=== PATIENT | male | born 1995 | race African-American/Black ===

== ENCOUNTER 2017-07-09 02:58 | Emergency (ER) | payer MEDICAID, MEDICARE, OTHER ==
--- NOTE | 2017-07-09 03:19 | ED Physician Documentation ---
PD HPI MHE - Stated complaint Stated Complaint: MHE - Chief complaint Chief Complaint: MHE - History obtained from History obtained from: Patient, Family (mother brought patient to ED, but left before I came to evaluate patient; she gave HPI to nurses, who then provided me with the information the mother had given before she left) - History of Present Illness Primary symptom: Other (unusual behavior, headache) Timing - onset: Unknown Pain level now: 4 Recently seen: Not recently seen (several previous [facility] ED visits but not since 2014) - Additional information Additional information: patient states he is here because of right-sided headache that started earlier tonight, no exacerbating or ameliorating factors. As noted above, the mother is not in the ED at the time of my evaluation, but nurses tell me that the mother brought patient in because she is concerned with repetitive and odd behaviors patient has been exhibiting, such as opening and closing doors, hiding things around the house. Patient denies this when I ask him. He strongly denies SI/HI/ AH/VH Review of Systems Constitutional: denies: Fever Eyes: denies: Loss of vision, Decreased vision, Photophobia Cardiac: reports: Reviewed and negative Respiratory: reports: Reviewed and negative GI: reports: Reviewed and negative Neurologic: reports: Headache. denies: Generalized weakness, Focal weakness, Numbness, Confused Psychiatric: denies: Depressed, Suicidal, Homicidal, Hallucinations, Delusions, Anxiety PD PAST MEDICAL HISTORY - Past Medical History Cardiovascular: None Respiratory: None Neuro: None Endocrine/Autoimmune: None GI: None HEENT: None Psych: Other - Past Surgical History Past Surgical History: No - Present Medications Home Medications: Ambulatory Orders Medication Instructions Recorded Confirmed No Known Home Medications [No 07/09/17 07/09/17 Known Home Medications] - Allergies Allergies/Adverse Reactions: Allergies Allergy/AdvReac Type Severity Reaction Status Date / Time No Known Drug Allergies Allergy Verified 07/09/17 03:10 - Social History Does the pt smoke?: No Smoking Status: Never smoker Does the pt drink ETOH?: No Does the pt have substance abuse?: No - Immunizations Immunizations are current?: Yes PD ED PE NORMAL - Vitals Vital signs reviewed: Yes - General General: Alert and oriented X 3, No acute distress, Well developed/nourished, Other (awake, alert; his affect is guarded, but he answers questions quickly and appropriately) - HEENT HEENT: PERRL, EOMI, Moist mucous membranes - Neck Neck: Supple, no meningeal sign - Cardiac Cardiac: RRR, No murmur - Respiratory Respiratory: No respiratory distress, Clear bilaterally - Derm Derm: Normal color, Warm and dry - Neuro Neuro: Alert and oriented X 3, 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, No motor deficit, No sensory deficit, Normal speech Eye Opening: Spontaneous Motor: Obeys Commands Verbal: Oriented GCS Score: 15 PD ED PE EXPANDED - Psych Psych: Other (flat affect) Results - Vitals Vitals: Vital Signs - 24 hr 07/09/17 07/09/17 03:00 07:44 Temperature 36.2 C L 36.7 C Heart Rate 122 H 90 Respiratory 18 17 Rate Blood Pressure 129/87 H 130/86 H O2 Saturation 99 100 Oxygen O2 Source Room air - Labs Labs: Laboratory Tests 07/09/17 07/09/17 07/09/17 03:13 03:28 03:28 WBC 6.2 RBC 5.54 Hgb 15.8 Hct 47.4 MCV 85.6 MCH 28.6 MCHC 33.3 RDW 13.2 Plt Count 256 MPV 8.4 Neut # 3.7 Lymph # 1.6 [place] # 0.6 Eos # 0.2 Baso # 0.1 Absolute Nucleated RBC 0.00 Nucleated RBC % 0.1 Sodium 138 Potassium 3.2 L Chloride 106 Carbon Dioxide 24 Anion Gap 8.0 BUN 28 H Creatinine 1.2 Estimated GFR (MDRD) 90 Glucose 100 Calcium 9.2 Urine Opiates Screen NEGATIVE Ur Oxycodone Screen NEGATIVE Urine Methadone Screen NEGATIVE Ur Propoxyphene Screen NEGATIVE Ur Barbiturates Screen NEGATIVE Ur Tricyclics Screen NEGATIVE Ur Phencyclidine Scrn NEGATIVE Ur Amphetamine Screen NEGATIVE U Methamphetamines Scrn NEGATIVE U Benzodiazepines Scrn NEGATIVE Urine Cocaine Screen NEGATIVE U Cannabinoids Screen NEGATIVE Ethyl Alcohol < 5.0 PD MEDICAL DECISION MAKING - ED course Complexity details: reviewed old records, reviewed results, re-evaluated patient , considered differential, d/w patient ED course: Patient was calm and cooperative during ED stay. I explained to him that, based on previous medical records and mother's concerns regarding his behavior patterns at home, I recommended SW consult and that this would require him to stay in the emergency department for several hours. He was agreeable to this, although at approximately 5 AM, he asked the nurse if he could leave. Before I went to talk to him about this, he called his mother. I then asked him about the discussion, and he says she would pick him up later in the morning. I again asked that he stay in the ED until SW could speak with him, and he again was agreeable, calm, and cooperative. SW evaluated patient in the morning, hospitalization or further emergent treatment/observation not indicated based on lack of evidence that patient is imminent danger to himself or others. Departure - Departure Disposition: 01 Home, Self Care Clinical Impression: Headache Qualifiers: Headache type: unspecified Headache chronicity pattern: acute headache Intractability: not intractable Qualified Code(s): R51 - Headache Condition: Good Instructions: ED Cephalgia Unspecified Follow-Up: Yolanda Wetzel ARNP [Primary Care Provider] - Discharge Date/Time: 07/09/17 08:08
[2017-07-09] MEDS ORDERED: ACETAMINOPHEN 325 MG TABLET PO STA (03:21)
[2017-07-09] MEDS ORDERED: ACETAMINOPHEN 325 MG TABLET PO ONE (03:27)
[2017-07-09] MEDS ORDERED: ACETAMINOPHEN 160 MG/5 ML SUSP UDC PO STA (03:29)
[2017-07-09] MEDS ORDERED: ACETAMINOPHEN 160 MG/5 ML SUSP UDC ONE (03:32)
[2017-07-09 03:35] LABS: BASOPHILS # (AUTO) 0.1 10^3/uL (0.0-0.1); BASOPHILS % (AUTO) 1.4 %; EOSINOPHILS # (AUTO) 0.2 10^3/uL (0.0-0.7); EOSINOPHILS % (AUTO) 3.6 %; HCT - HEMATOCRIT 47.4 % (42.0-52.0); HGB - HEMOGLOBIN 15.8 g/dL (14.0-18.0); LYMPHOCYTES # (AUTO) 1.6 10^3/uL (1.5-3.5); LYMPHOCYTES % (AUTO) 26.2 %; MEAN CORPUSCULAR HEMOGLOBIN 28.6 pg (27.0-31.0); MEAN CORPUSCULAR HGB CONC 33.3 g/dL (32.0-36.0); MEAN CORPUSCULAR VOLUME 85.6 fL (80.0-94.0); MEAN PLATELET VOLUME 8.4 fL (7.4-11.4); MONOCYTES # (AUTO) 0.6 10^3/uL (0.0-1.0); MONOCYTES % (AUTO) 8.9 %; NEUTROPHILS # (AUTO) 3.7 10^3/uL (1.5-6.6); NEUTROPHILS % (AUTO) 59.9 %; NUCLEATED RED BLOOD CELLS AUTO 0.1 /100WBC; RED BLOOD COUNT 5.54 10^6/uL (4.70-6.10); RED CELL DISTRIBUTION WIDTH 13.2 % (12.0-15.0); UNCORRECTED WHITE BLOOD COUNT 6.2 x10^3/uL; WHITE BLOOD COUNT 6.2 x10^3/uL (4.8-10.8)
[2017-07-09 03:51] LABS: BUN - BLOOD UREA NITROGEN 28 mg/dL (6-20); CALCIUM 9.2 mg/dL (8.5-10.3); CARBON DIOXIDE - CO2 24 mmol/L (21-32); CHLORIDE 106 mmol/L (101-111); CREATININE 1.2 mg/dL (0.6-1.2); GFR - MDRD 90 (>89); GLUCOSE 100 mg/dL (70-100); POTASSIUM 3.2 mmol/L (3.5-5.0); SODIUM 138 mmol/L (135-145)
[2017-07-09 07:45] VITALS: BP 130/86
== END 2017-07-09 08:08 | disposition home or self-care (01) ==
LOC: ED 02:58
DX: R51 Headache (principal)
CPT/HCPCS: 36415; 80048; 80306; 85025; 99283; A9270; G0480; 80320

== ENCOUNTER 2017-07-10 05:35 | Emergency (ER) | payer MEDICARE, MEDICAID ==
--- NOTE | 2017-07-10 05:52 | ED Physician Documentation ---
PD HPI MHE - Stated complaint Stated Complaint: HEARING VOICES - History obtained from History obtained from: Patient, Family (mother of patient) - History of Present Illness Primary symptom: Other (auditory hallucinations) Timing - onset: Chronic Pain level now: 0 Similar symptoms before: Other (schizophrenia) Recently seen: Emergency Dept (T+R yesterday from this ED) - Additional information Additional information: Discharged yesterday from this ED. He is brought back to ED by his mother; she tells me that after he was discharged, he went missing and thus she called police and filed a missing person report. He was found and brought back home, and she now brings him back to ED for reevaluation. She reports to me that patient is acting odd, and that he is making suicidal threats. When I told her that I was the treating physician yesterday, she immediately became very upset and angry with me, making obtaining HPI from her difficult. She repeatedly says patient needs Invega as well as admission to an inpatient psychiatric facility. I explained to her that I would see if we have this medication, but that I recommend holding off on medication until SW evaluation so as to avoid sedation that might interfere with the SW evaluation. I strongly recommended to her that she stay in the ED until SW arrives, which would be in approximately 2 hours. She said she was going to go home but that she would return so that she can be present when the SW evaluated him. When I evaluated patient yesterday, he only c/o headache. However, at this time he tells me he is hearing voices. He also says "there are some issues going on at home, too" (per patient) although he does not elaborate on this. Review of Systems Cardiac: reports: Reviewed and negative Respiratory: reports: Reviewed and negative GI: reports: Reviewed and negative PD PAST MEDICAL HISTORY - Past Medical History Cardiovascular: None Respiratory: None Neuro: None Endocrine/Autoimmune: None GI: None HEENT: None Psych: Other - Past Surgical History Past Surgical History: No - Present Medications Home Medications: Ambulatory Orders Medication Instructions Recorded Confirmed No Known Home Medications [No 07/09/17 07/10/17 Known Home Medications] - Allergies Allergies/Adverse Reactions: Allergies Allergy/AdvReac Type Severity Reaction Status Date / Time No Known Drug Allergies Allergy Verified 07/10/17 05:44 - Social History Does the pt smoke?: No Smoking Status: Never smoker Does the pt drink ETOH?: No Does the pt have substance abuse?: No - Immunizations Immunizations are current?: Yes - POLST Patient has POLST: No PD ED PE NORMAL - Vitals Vital signs reviewed: Yes - General General: Alert and oriented X 3, No acute distress, Well developed/nourished, Other (awake and alert, calm and cooperative. 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 Mother did return to ED at 8 AM and was present to participate in the manager social services's evaluation. I signed this case out to Dr. Garcia at the end of my shift, as evaluation is ongoing at that time.
[2017-07-10] MEDS ORDERED: OLANZapine ODT 5 MG TABLET TL STA (09:36)
[2017-07-10] MEDS ORDERED: OLANZapine 10 MG VIAL IM STA (09:44)
[2017-07-10] MEDS ORDERED: OLANZapine 10 MG VIAL IM ONE (09:53)
[2017-07-10] MEDS ORDERED: WATER FOR INJECTION,STERILE 10 ML ONE (09:56)
[2017-07-10] MEDS ORDERED: LORazepam 0.5 MG TABLET PO STA (10:14)
[2017-07-10] MEDS ORDERED: LORazepam 0.5 MG TABLET ONE (10:36)
[2017-07-10 10:40] LABS: HCT - HEMATOCRIT 45.2 % (42.0-52.0); HGB - HEMOGLOBIN 15.2 g/dL (14.0-18.0); MEAN CORPUSCULAR HEMOGLOBIN 28.7 pg (27.0-31.0); MEAN CORPUSCULAR HGB CONC 33.7 g/dL (32.0-36.0); MEAN CORPUSCULAR VOLUME 85.3 fL (80.0-94.0); MEAN PLATELET VOLUME 8.3 fL (7.4-11.4); RED BLOOD COUNT 5.3 10^6/uL (4.70-6.10); RED CELL DISTRIBUTION WIDTH 13.3 % (12.0-15.0); WHITE BLOOD COUNT 9.3 x10^3/uL (4.8-10.8)
[2017-07-10 10:52] LABS: ALBUMIN/GLOBULIN RATIO 1.4 (1.0-2.2); BILIRUBIN,TOTAL 1.6 mg/dL (0.2-1.0); BUN - BLOOD UREA NITROGEN 22 mg/dL (6-20); CALCIUM 9.6 mg/dL (8.5-10.3); CARBON DIOXIDE - CO2 26 mmol/L (21-32); CHLORIDE 101 mmol/L (101-111); CREATININE 1.1 mg/dL (0.6-1.2); GFR - MDRD 100 (>89); GLUCOSE 114 mg/dL (70-100); LIPASE 36 U/L (22-51); POTASSIUM 3.2 mmol/L (3.5-5.0); SALICYLATE < 6.0 mg/dL; SODIUM 138 mmol/L (135-145); TOTAL PROTEIN 7.8 g/dL (6.7-8.2)
[2017-07-10 11:08] LABS: ACETAMINOPHEN < 10 ug/mL (10-30)
[2017-07-10 11:14] LABS: BILIRUBIN,URINE NEGATIVE (NEGATIVE)
[2017-07-10 11:15] LABS: UA CHARGE (STRIP ONLY) YES; UR CULTURE IF IND NOT INDICATED
[2017-07-10] MEDS ORDERED: POTASSIUM BICARB 25 MEQ TABLET PO STA (13:21)
[2017-07-10] MEDS ORDERED: POTASSIUM BICARB 25 MEQ TABLET PO ONE (14:27)
--- NOTE | 2017-07-10 16:41 | ED Physician Documentation ---
PD HPI MHE - Stated complaint Stated Complaint: HEARING VOICES - Chief complaint Chief Complaint: MHE - History obtained from History obtained from: Patient - History of Present Illness Primary symptom: Off meds, Medical clearance, Other (hearing voices again) Timing - onset: How many months ago (1) Similar symptoms before: Diagnosis (schizophrenia) Recently seen: Emergency Dept - Additional information Additional information: 22-year-old male with a prior history of schizophrenia has been off of his medications for about 1 year and about 1 month ago began to hear voices again. He denies any command hallucinations he denies any persecutory delusions states that he is simply having random voices. He would like to restart on some medication. He denies any depression denies any suicidal or homicidal ideation. He is accompanied here today by his mother who insists that he needs to be admitted to a psychiatric facility for medications. The patient himself is cooperative and agrees with this plan. Review of Systems Constitutional: denies: Fever, Chills, Myalgias Eyes: denies: Decreased vision Ears: denies: Loss of hearing, Ear pain Nose: denies: Congestion Throat: denies: Sore throat Cardiac: denies: Chest pain / pressure Respiratory: denies: Dyspnea, Cough GI: denies: Abdominal Pain, Nausea, Vomiting, Constipation, Diarrhea : denies: Dysuria, Frequency Skin: denies: Rash Musculoskeletal: denies: Neck pain, Back pain, Extremity pain Neurologic: denies: Generalized weakness, Focal weakness, Numbness Psychiatric: reports: Hallucinations. denies: Depressed, Suicidal, Homicidal, Delusions, Insomnia PD PAST MEDICAL HISTORY - Past Medical History Past Medical History: No Cardiovascular: None Respiratory: None Neuro: None Endocrine/Autoimmune: None GI: None HEENT: None Psych: Other - Past Surgical History Past Surgical History: No - Present Medications Home Medications: Ambulatory Orders Medication Instructions Recorded Confirmed No Known Home Medications [No 07/09/17 07/10/17 Known Home Medications] - Allergies Allergies/Adverse Reactions: Allergies Allergy/AdvReac Type Severity Reaction Status Date / Time No Known Drug Allergies Allergy Verified 07/10/17 05:44 - Social History Does the pt smoke?: No Smoking Status: Never smoker Does the pt drink ETOH?: No Does the pt have substance abuse?: No - Immunizations Immunizations are current?: Yes - POLST Patient has POLST: No PD ED PE NORMAL - Vitals Vital signs reviewed: Yes (hypertensive) - General General: Alert and oriented X 3, No acute distress, Well developed/nourished - HEENT HEENT: Atraumatic, PERRL - Respiratory Respiratory: No respiratory distress - Derm Derm: Normal color, Warm and dry, No rash - Extremities Extremities: No deformity, No edema - Neuro Neuro: Alert and oriented X 3, behavioral health counselor 2-12 intact, No motor deficit, No sensory deficit, Normal speech Eye Opening: Spontaneous Motor: Obeys Commands Verbal: Oriented GCS Score: 15 - Psych Psych: Normal mood, Normal affect Results - Vitals Vitals: Vital Signs - 24 hr 07/10/17 07/10/17 07/11/17 19:25 21:45 05:21 Temperature 36.4 C L 36.5 C Heart Rate 102 H 107 H 98 Respiratory 12 18 18 Rate Blood Pressure 105/75 128/94 H 129/78 O2 Saturation 97 100 99 07/11/17 12:37 Temperature Heart Rate 78 Respiratory 16 Rate Blood Pressure 128/81 H O2 Saturation 97 Oxygen O2 Source Room air - Labs Labs: Laboratory Tests 07/10/17 07/10/17 07/10/17 10:31 10:31 11:08 WBC 9.3 RBC 5.30 Hgb 15.2 Hct 45.2 MCV 85.3 MCH 28.7 MCHC 33.7 RDW 13.3 Plt Count 239 MPV 8.3 Sodium 138 Potassium 3.2 L Chloride 101 Carbon Dioxide 26 Anion Gap 11.0 BUN 22 H Creatinine 1.1 Estimated GFR (MDRD) 100 Glucose 114 H Calcium 9.6 Total Bilirubin 1.6 H AST 60 H ALT 39 Alkaline Phosphatase 59 Ammonia Total Protein 7.8 Albumin 4.6 Globulin 3.2 Albumin/Globulin Ratio 1.4 Lipase 36 Urine Color YELLOW Urine Clarity CLEAR Urine pH 6.0 Ur Specific [place] 1.015 Urine Protein NEGATIVE Urine Glucose (UA) NEGATIVE Urine Ketones 15 H Urine Occult Blood TRACE-INTA Urine Nitrite NEGATIVE Urine Bilirubin NEGATIVE Urine Urobilinogen 0.2 (NORMAL) Ur Leukocyte Esterase NEGATIVE Ur Microscopic Review NOT INDICATED Urine Culture Comments NOT INDICATED Salicylates < 6.0 Urine Opiates Screen Ur Oxycodone Screen Urine Methadone Screen Ur Propoxyphene Screen Acetaminophen < 10 L Ur Barbiturates Screen Ur Tricyclics Screen Ur Phencyclidine Scrn Ur Amphetamine Screen U Methamphetamines Scrn U Benzodiazepines Scrn Urine Cocaine Screen U Cannabinoids Screen Ethyl Alcohol < 5.0 07/10/17 07/10/17 07/10/17 11:08 14:36 16:50 WBC RBC Hgb Hct MCV MCH MCHC RDW Plt Count MPV Sodium Potassium 3.6 Chloride Carbon Dioxide Anion Gap BUN Creatinine Estimated GFR (MDRD) Glucose Calcium Total Bilirubin AST ALT Alkaline Phosphatase Ammonia 18.3 Total Protein Albumin Globulin Albumin/Globulin Ratio Lipase Urine Color Urine Clarity Urine pH Ur Specific [place] Urine Protein Urine Glucose (UA) Urine Ketones Urine Occult Blood Urine Nitrite Urine Bilirubin Urine Urobilinogen Ur Leukocyte Esterase Ur Microscopic Review Urine Culture Comments Salicylates Urine Opiates Screen NEGATIVE Ur Oxycodone Screen NEGATIVE Urine Methadone Screen NEGATIVE Ur Propoxyphene Screen NEGATIVE Acetaminophen Ur Barbiturates Screen NEGATIVE Ur Tricyclics Screen NEGATIVE Ur Phencyclidine Scrn NEGATIVE Ur Amphetamine Screen NEGATIVE U Methamphetamines Scrn NEGATIVE U Benzodiazepines Scrn NEGATIVE Urine Cocaine Screen NEGATIVE U Cannabinoids Screen NEGATIVE Ethyl Alcohol PD MEDICAL DECISION MAKING - ED course Complexity details: considered differential, d/w patient ED course: The patient is medically cleared and social work has been actively persuing bed placement. They were not able to find placement today in a facility that has the specific antipsychotic the patient has benefited from previously. He is willing to board in the ED tonight. He was administered ativan here in the Ed with benefit. park worker supervisor is able to make arrangements for a crisis respite bed and the patient is discharged to follow up there and leaves the hospital in a Taxi. Departure - Departure Disposition: 01 Home, Self Care Clinical Impression: Psychosis Qualifiers: Psychosis type: schizoaffective disorder Schizoaffective disorder type: depressive Qualified Code(s): F25.1 - Schizoaffective disorder, depressive type Condition: Stable Instructions: ED Schizo Affective Disorder Follow-Up: Yolanda Wetzel ARNP [Primary Care Provider] - Comments: Follow-up with crisis respite as planned. Discharge Date/Time: 07/11/17 12:39
[2017-07-10] MEDS ORDERED: OLANZapine ODT 5 MG TABLET TL ONE (23:14)
[2017-07-11 12:39] VITALS: BP 128/81
== END 2017-07-11 12:39 | disposition home or self-care (01) ==
LOC: ED 05:35
DX: F25.1 Schizoaffective disorder, depressive type (principal)
CPT/HCPCS: 36415; 80053; 80074; 80306; 80307; 81003; 82140; 83690; 84132; 85027; 93005; 99283; 99284; A9270; G0480; 80320; 80329; 81001; 87086

== ENCOUNTER 2017-07-13 03:30 | Emergency (ER) | payer MEDICARE, MEDICAID ==
[2017-07-13] MEDS ORDERED: IBUPROFEN 600 MG TABLET PO STA (03:44)
[2017-07-13] MEDS ORDERED: IBUPROFEN 600 MG TABLET PO ONE (03:56)
[2017-07-13 04:12] LABS: BASOPHILS % (AUTO) 0.3 %; EOSINOPHILS # (AUTO) 0.1 10^3/uL (0.0-0.7); EOSINOPHILS % (AUTO) 1.8 %; HCT - HEMATOCRIT 44.8 % (42.0-52.0); HGB - HEMOGLOBIN 15.1 g/dL (14.0-18.0); LYMPHOCYTES # (AUTO) 1.8 10^3/uL (1.5-3.5); LYMPHOCYTES % (AUTO) 22.5 %; MEAN CORPUSCULAR HEMOGLOBIN 28.9 pg (27.0-31.0); MEAN CORPUSCULAR HGB CONC 33.8 g/dL (32.0-36.0); MEAN CORPUSCULAR VOLUME 85.6 fL (80.0-94.0); MEAN PLATELET VOLUME 8.5 fL (7.4-11.4); MONOCYTES # (AUTO) 0.8 10^3/uL (0.0-1.0); MONOCYTES % (AUTO) 9.4 %; NEUTROPHILS # (AUTO) 5.3 10^3/uL (1.5-6.6); RED BLOOD COUNT 5.23 10^6/uL (4.70-6.10); RED CELL DISTRIBUTION WIDTH 13.2 % (12.0-15.0)
[2017-07-13 04:18] LABS: ACETAMINOPHEN < 10 ug/mL (10-30); ALBUMIN/GLOBULIN RATIO 1.5 (1.0-2.2); BILIRUBIN,TOTAL 0.6 mg/dL (0.2-1.0); BUN - BLOOD UREA NITROGEN 14 mg/dL (6-20); CALCIUM 9.1 mg/dL (8.5-10.3); CARBON DIOXIDE - CO2 26 mmol/L (21-32); CHLORIDE 104 mmol/L (101-111); CREATININE 0.9 mg/dL (0.6-1.2); GFR - MDRD 126 (>89); GLUCOSE 102 mg/dL (70-100); LIPASE 25 U/L (22-51); POTASSIUM 3.6 mmol/L (3.5-5.0); SALICYLATE < 6.0 mg/dL; SODIUM 137 mmol/L (135-145); TOTAL PROTEIN 7.4 g/dL (6.7-8.2)
--- NOTE | 2017-07-13 04:39 | ED Physician Documentation ---
PD HPI MHE - Stated complaint Stated Complaint: HEADACHE - Chief complaint Chief Complaint: Neuro - History obtained from History obtained from: Patient, Family - History of Present Illness Primary symptom: Psychosis, Off meds Timing - onset: How many weeks ago (2) Contributing factors: Family, Off meds Similar symptoms before: Work up / diagnostics, Treatment Recently seen: Emergency Dept - Additional information Additional information: Patient is a 22 year old male with a history of schizoaffective disorder who is presenting to the emergency department for hearing voices. According to patient , sister, and previous charts patient was seen in the emergency department 4 days ago. At that time he also complained of headaches and originally left in about an hour. Patient then came back the next day and was eventually sent to a respite center. Patient was picked up there by his sister today who was unclear of what happened exactly. Patient complained of mild headache but also stated that he was hearing things in his head and wanted help. Patient had been on antispychotics but currently was not taking any. Patient denied suicidal or homicidal ideation but stated that he did want to talk to someone. Review of Systems Constitutional: denies: Fever, Chills Eyes: denies: Decreased vision, Photophobia Ears: denies: Ear pain, Drainage/discharge Nose: denies: Rhinorrhea / runny nose, Congestion Throat: denies: Dental pain / toothache, Sore throat Cardiac: denies: Chest pain / pressure Respiratory: denies: Dyspnea, Cough, Wheezing GI: denies: Nausea, Vomiting : reports: Reviewed and negative Skin: reports: Reviewed and negative Musculoskeletal: reports: Reviewed and negative Neurologic: reports: Headache. denies: Altered mental status, Head injury, LOC Psychiatric: reports: Hallucinations. denies: Depressed, Suicidal, Homicidal Immunocompromised: denies: Immunocompromised PD PAST MEDICAL HISTORY - Past Medical History Cardiovascular: None Respiratory: None Neuro: None Endocrine/Autoimmune: None GI: None HEENT: None Psych: Other - Past Surgical History Past Surgical History: No - Present Medications Home Medications: Ambulatory Orders Medication Instructions Recorded Confirmed No Known Home Medications [No 07/09/17 07/13/17 Known Home Medications] - Allergies Allergies/Adverse Reactions: Allergies Allergy/AdvReac Type Severity Reaction Status Date / Time No Known Drug Allergies Allergy Verified 07/13/17 03:37 - Social History Does the pt smoke?: No Smoking Status: Never smoker Does the pt drink ETOH?: No Does the pt have substance abuse?: No - Immunizations Immunizations are current?: Yes - POLST Patient has POLST: No PD ED PE NORMAL - Vitals Vital signs reviewed: Yes - General General: Alert and oriented X 3, No acute distress, Well developed/nourished - HEENT HEENT: Atraumatic, PERRL, Moist mucous membranes, Pharynx benign - Neck Neck: Supple, no meningeal sign, No JVD - Cardiac Cardiac: RRR, No murmur - Respiratory Respiratory: No respiratory distress, Clear bilaterally - Abdomen Abdomen: Soft, Non tender, Non distended - Derm Derm: Normal color, Warm and dry, No rash - Extremities Extremities: No deformity, No tenderness to palpate, Normal ROM s pain - Neuro Neuro: Alert and oriented X 3, 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 No: Suicidal, Homicidal, Tearful, Visual hallucinations, Tactile hallucinations Results - Vitals Vitals: Vital Signs - 24 hr 07/13/17 03:35 Temperature 36.4 C L Heart Rate 90 Respiratory 18 Rate Blood Pressure 141/84 H O2 Saturation 98 Oxygen O2 Source Room air - Labs Labs: Laboratory Tests 07/13/17 07/13/17 07/13/17 03:40 04:00 04:00 WBC 8.0 RBC 5.23 Hgb 15.1 Hct 44.8 MCV 85.6 MCH 28.9 MCHC 33.8 RDW 13.2 Plt Count 246 MPV 8.5 Neut # 5.3 Lymph # 1.8 [place] # 0.8 Eos # 0.1 Baso # 0.0 Absolute Nucleated RBC 0.00 Nucleated RBC % 0.0 Sodium 137 Potassium 3.6 Chloride 104 Carbon Dioxide 26 Anion Gap 7.0 BUN 14 Creatinine 0.9 Estimated GFR (MDRD) 126 Glucose 102 H Calcium 9.1 Total Bilirubin 0.6 AST 34 ALT 41 Alkaline Phosphatase 57 Total Protein 7.4 Albumin 4.4 Globulin 3.0 Albumin/Globulin Ratio 1.5 Lipase 25 Salicylates < 6.0 Urine Opiates Screen NEGATIVE Ur Oxycodone Screen NEGATIVE Urine Methadone Screen NEGATIVE Ur Propoxyphene Screen NEGATIVE Acetaminophen < 10 L Ur Barbiturates Screen NEGATIVE Ur Tricyclics Screen NEGATIVE Ur Phencyclidine Scrn NEGATIVE Ur Amphetamine Screen NEGATIVE U Methamphetamines Scrn NEGATIVE U Benzodiazepines Scrn NEGATIVE Urine Cocaine Screen NEGATIVE U Cannabinoids Screen NEGATIVE Ethyl Alcohol < 5.0 PD MEDICAL DECISION MAKING - ED course Complexity details: reviewed old records, reviewed results, re-evaluated patient , considered differential, d/w patient, d/w family ED course: Patient was seen and examined at bedside. Originally patient stated that he had a headache, but then stated that he actually wanted to talk to someone about inpatient psychiatric care. Lbs were drawn and urine was collected. Patient was treated with ibuprofen for his headache. When patient's labs came back there were no major abnormalities. Patient was medically clear. Patient was signed over to Dr. Garcia Pending disposition and social work evaluation.
[2017-07-13 06:42] VITALS: BP 125/82
--- NOTE | 2017-07-19 03:23 | ED Physician Documentation ---
ED Addendum - Addendum Addendum: 07/19/17 03:21 This patient's care was turned over to me at shift change. He left AMA with a diagnosis of psychosis.
== END 2017-07-13 09:00 | disposition left against medical advice (07) ==
LOC: ED 03:30
DX: F29 Unspecified psychosis not due to a substance or known physiological condition (principal)
CPT/HCPCS: 36415; 80053; 80306; 80307; 80320; 80329; 83690; 85025; 99283

== ENCOUNTER 2017-07-13 16:46 | Emergency (ER) | payer MEDICARE, MEDICAID ==
[2017-07-13] MEDS ORDERED: HALOPERIDOL 5 MG/ML VIAL IM STA (17:24)
--- NOTE | 2017-07-13 17:26 | ED Physician Documentation ---
History of Present Illness - Stated complaint Stated Complaint: HEADACHE - Chief complaint Chief Complaint: Neuro - History obtained from History obtained from: Patient, Family - History of Present Illness Timing: Other (22-year-old gentleman with history of schizophrenia. He has had headache for 4 days in the right side, gradual in onset not associated with photophobia phonophobia or nausea. He says he has had headaches before and has had a diagnosis of migraines. Mom says he does not have a history of migraines. They are also concerned about his mental status, he has been hearing voices. Previously was on in Subram[place] long-acting, has not been compliant with medications for over a year. He has been wandering around and coming and going at odd hours and making noise in the middle of the night. There was no threats of homicidality or suicidality.) Review of Systems Ten Systems: 10 systems reviewed and negative Constitutional: reports: Reviewed and negative Nose: reports: Reviewed and negative Throat: reports: Reviewed and negative Cardiac: reports: Reviewed and negative PD PAST MEDICAL HISTORY - Past Medical History Past Medical History: Yes Cardiovascular: None Respiratory: None Neuro: None Endocrine/Autoimmune: None GI: None HEENT: None Psych: Other - Past Surgical History Past Surgical History: No - Present Medications Home Medications: Ambulatory Orders Medication Instructions Recorded Confirmed No Known Home Medications [No 07/09/17 07/13/17 Known Home Medications] - Allergies Allergies/Adverse Reactions: Allergies Allergy/AdvReac Type Severity Reaction Status Date / Time No Known Drug Allergies Allergy Verified 07/13/17 03:37 - Social History Does the pt smoke?: No Smoking Status: Never smoker Does the pt drink ETOH?: No Does the pt have substance abuse?: No - Family History Family history: reports: Non contributory - Immunizations Immunizations are current?: Yes - POLST Patient has POLST: No PD ED PE NORMAL - Vitals Vital signs reviewed: Yes - General General: Alert and oriented X 3, No acute distress, Other (Slightly blunted affect but alert and cooperative) - HEENT HEENT: PERRL, EOMI - Neck Neck: Supple, no meningeal sign, No bony TTP - Cardiac Cardiac: RRR, No murmur - Respiratory Respiratory: No respiratory distress, Clear bilaterally - Abdomen Abdomen: Soft, Non tender - Back Back: No CVA TTP, No spinal TTP - Derm Derm: Normal color, Warm and dry - Extremities Extremities: No deformity, No tenderness to palpate, No edema - Neuro Neuro: Alert and oriented X 3 Eye Opening: Spontaneous Motor: Obeys Commands Verbal: Oriented GCS Score: 15 Results - Vitals Vitals: Vital Signs - 24 hr 07/13/17 07/13/17 07/13/17 17:01 18:01 23:41 Temperature 36.8 C 36.6 C 36.8 C Heart Rate 78 83 110 H Respiratory 18 16 17 Rate Blood Pressure 142/88 H 136/79 H 122/75 O2 Saturation 98 98 97 07/14/17 00:40 Temperature 36.8 C Heart Rate 91 Respiratory 18 Rate Blood Pressure 124/78 O2 Saturation 98 Oxygen O2 Source Room air - Labs Labs: Laboratory Tests 07/13/17 07/13/17 07/13/17 17:30 17:30 17:30 WBC 9.1 RBC 5.47 Hgb 15.7 Hct 47.0 MCV 86.0 MCH 28.7 MCHC 33.4 RDW 13.2 Plt Count 285 MPV 8.5 Neut # 5.1 Lymph # 2.8 [place] # 0.9 Eos # 0.2 Baso # 0.0 Absolute Nucleated RBC 0.00 Nucleated RBC % 0.0 Sodium 137 Potassium 3.6 Chloride 102 Carbon Dioxide 27 Anion Gap 8.0 BUN 14 Creatinine 0.9 Estimated GFR (MDRD) 126 Glucose 112 H Calcium 9.6 Magnesium 2.2 Total Bilirubin 0.7 AST 36 ALT 44 Alkaline Phosphatase 59 Total Protein 7.9 Albumin 4.7 Globulin 3.2 Albumin/Globulin Ratio 1.5 Lipase 29 TSH 1.58 Urine Color Urine Clarity Urine pH Ur Specific [place] Urine Protein Urine Glucose (UA) Urine Ketones Urine Occult Blood Urine Nitrite Urine Bilirubin Urine Urobilinogen Ur Leukocyte Esterase Ur Microscopic Review Urine Culture Comments Urine Opiates Screen Ur Oxycodone Screen Urine Methadone Screen Ur Propoxyphene Screen Ur Barbiturates Screen Ur Tricyclics Screen Ur Phencyclidine Scrn Ur Amphetamine Screen U Methamphetamines Scrn U Benzodiazepines Scrn Urine Cocaine Screen U Cannabinoids Screen Ethyl Alcohol < 5.0 07/13/17 18:35 WBC RBC Hgb Hct MCV MCH MCHC RDW Plt Count MPV Neut # Lymph # [place] # Eos # Baso # Absolute Nucleated RBC Nucleated RBC % Sodium Potassium Chloride Carbon Dioxide Anion Gap BUN Creatinine Estimated GFR (MDRD) Glucose Calcium Magnesium Total Bilirubin AST ALT Alkaline Phosphatase Total Protein Albumin Globulin Albumin/Globulin Ratio Lipase TSH Urine Color LIGHT YELLOW Urine Clarity CLEAR Urine pH 7.5 Ur Specific [place] 1.015 Urine Protein NEGATIVE Urine Glucose (UA) NEGATIVE Urine Ketones NEGATIVE Urine Occult Blood TRACE-INTA Urine Nitrite NEGATIVE Urine Bilirubin NEGATIVE Urine Urobilinogen 0.2 (NORMAL) Ur Leukocyte Esterase NEGATIVE Ur Microscopic Review NOT INDICATED Urine Culture Comments NOT INDICATED Urine Opiates Screen NEGATIVE Ur Oxycodone Screen NEGATIVE Urine Methadone Screen NEGATIVE Ur Propoxyphene Screen NEGATIVE Ur Barbiturates Screen NEGATIVE Ur Tricyclics Screen NEGATIVE Ur Phencyclidine Scrn NEGATIVE Ur Amphetamine Screen NEGATIVE U Methamphetamines Scrn NEGATIVE U Benzodiazepines Scrn NEGATIVE Urine Cocaine Screen NEGATIVE U Cannabinoids Screen NEGATIVE Ethyl Alcohol - Rads (name of study) Head CT Radiology: EMP read contemporaneously (Normal) PD MEDICAL DECISION MAKING - ED course ED course: 22yo man with psychosis, seems exacerbated and noncompliant. Left AMA last night and family scared of his condition. [facility] saw pt and made involuntary and transferred to psych facility. Got Head CT given that main C/O headache and may need CT for psych hospital. Took haldol here. Departure - Departure Disposition: 65 Psych Hosp/Unit DC/Xfer Clinical Impression: Schizophrenia Qualifiers: Schizophrenia type: paranoid schizophrenia Qualified Code(s): F20.0 - Paranoid schizophrenia Headache Qualifiers: Headache type: tension-type Headache chronicity pattern: acute headache Intractability: not intractable Qualified Code(s): G44.209 - Tension-type headache, unspecified, not intractable Condition: Stable Discharge Date/Time: 07/14/17 00:42
[2017-07-13 17:40] LABS: BASOPHILS % (AUTO) 0.5 %; EOSINOPHILS # (AUTO) 0.2 10^3/uL (0.0-0.7); EOSINOPHILS % (AUTO) 2.4 %; HGB - HEMOGLOBIN 15.7 g/dL (14.0-18.0); LYMPHOCYTES # (AUTO) 2.8 10^3/uL (1.5-3.5); LYMPHOCYTES % (AUTO) 31.3 %; MEAN CORPUSCULAR HEMOGLOBIN 28.7 pg (27.0-31.0); MEAN CORPUSCULAR HGB CONC 33.4 g/dL (32.0-36.0); MEAN PLATELET VOLUME 8.5 fL (7.4-11.4); MONOCYTES # (AUTO) 0.9 10^3/uL (0.0-1.0); NEUTROPHILS # (AUTO) 5.1 10^3/uL (1.5-6.6); NEUTROPHILS % (AUTO) 55.8 %; RED BLOOD COUNT 5.47 10^6/uL (4.70-6.10); RED CELL DISTRIBUTION WIDTH 13.2 % (12.0-15.0); UNCORRECTED WHITE BLOOD COUNT 9.1 x10^3/uL; WHITE BLOOD COUNT 9.1 x10^3/uL (4.8-10.8)
[2017-07-13] MEDS ORDERED: HALOPERIDOL 5 MG/ML VIAL ONE (17:49)
--- NOTE | 2017-07-13 17:54 | CT Preliminary Report ---
Exam: CT HEAD W/O IMPRESSION: Normal head CT. [facility] SITE ID: [id number]
--- NOTE | 2017-07-13 18:04 | CT Report ---
EXAM: CT HEAD EXAM DATE: 07/13/2017 05:46 PM. CLINICAL HISTORY: Superior and right-sided headache for 3 days. COMPARISON: None. TECHNIQUE: Multiaxial CT images were obtained from the foramen magnum to the vertex. Reformats: Coron al. IV contrast: None. In accordance with CT protocol optimization, one or more of the following dose reduction techniques w ere utilized for this exam: automated exposure control, adjustment of mA and/or KV based on patient s ize, or use of iterative reconstructive technique. FINDINGS: Parenchyma: No intraparenchymal hemorrhage. No evidence of mass, midline shift, or CT findings of inf arction. Cristina-white differentiation is distinct. Extraaxial Spaces: Normal for age. No subdural or epidural collections identified. Ventricles: Normal in size and position. Sinuses and Orbits: Imaged paranasal sinuses, orbits, and mastoids show no significant abnormality. Bones: No evidence of fracture or calvarial defect. Other: None. IMPRESSION: Normal head CT. [facility] Referring Provider Line: [phone] SITE ID: [id number]
[2017-07-13 18:18] LABS: ALBUMIN/GLOBULIN RATIO 1.5 (1.0-2.2); BILIRUBIN,TOTAL 0.7 mg/dL (0.2-1.0); BUN - BLOOD UREA NITROGEN 14 mg/dL (6-20); CALCIUM 9.6 mg/dL (8.5-10.3); CARBON DIOXIDE - CO2 27 mmol/L (21-32); CHLORIDE 102 mmol/L (101-111); CREATININE 0.9 mg/dL (0.6-1.2); GFR - MDRD 126 (>89); GLUCOSE 112 mg/dL (70-100); LIPASE 29 U/L (22-51); MAGNESIUM 2.2 mg/dL (1.7-2.8); POTASSIUM 3.6 mmol/L (3.5-5.0); SODIUM 137 mmol/L (135-145); TOTAL PROTEIN 7.9 g/dL (6.7-8.2)
[2017-07-13 18:43] LABS: BILIRUBIN,URINE NEGATIVE (NEGATIVE); PH,URINE 7.5 PH (5.0-7.5)
[2017-07-13 18:44] LABS: UA CHARGE (STRIP ONLY) YES; UR CULTURE IF IND NOT INDICATED
--- NOTE | 2017-07-14 00:05 | ED Physician Documentation ---
ED Addendum - Addendum Addendum: 07/14/17 00:03 Patient had already been medically cleared by Dr. Sanabria. Patient was evaluated by dm, who put the patient on a hold. Patient was accepted by [facility] and a Dr. Saravia. transportation was arranged and patient was transferred in stable condition.
[2017-07-14 00:48] VITALS: BP 124/78
== END 2017-07-14 00:42 ==
LOC: ED 16:46
DX: F20.0 Paranoid schizophrenia (principal); G44.209 Tension-type headache, unspecified, not intractable; F29 Unspecified psychosis not due to a substance or known physiological condition
CPT/HCPCS: 36415; 70450; 80053; 80306; 80307; 81003; 83690; 83735; 84443; 85025; 96372; 99283; 99284; 99285; A9270; G0480; 80320; 80329; 81001; 87086

== ENCOUNTER 2017-07-14 00:44 | Outpatient (CLI) | payer MEDICARE, MEDICAID | END 2017-07-14 00:45 | disposition short-term general hospital (02) | LOC: EMS 00:44 | PROVIDERS: ATTEND Surgery | DX: F20.9 Schizophrenia, unspecified (principal) | CPT/HCPCS: A0425; A0428 ==

== ENCOUNTER 2021-03-29 15:10 | Emergency (ER) | payer MEDICARE, MEDICAID ==
[2021-03-29 15:36] VITALS: BP 160/100
[2021-03-29] MEDS ORDERED: LORazepam 2 MG/ML VIAL IM STA (16:05)
--- NOTE | 2021-03-29 16:06 | ED Physician Documentation ---
PD HPI MHE - Stated complaint Stated Complaint: HEARING VOICES - Chief complaint Chief Complaint: MHE - History obtained from History obtained from: Patient - Additional information Additional information: 25-year-old gentleman with schizophrenia is maintained on long-acting Haldol every 3 weeks and as needed Ativan. He lives in [place] and states that sometimes his schizophrenia acts up and he is really helped by a shot of Ativan and is requesting that. He is hearing increased voices, but no SI or HI. No other stated needs. Review of Systems Constitutional: reports: Reviewed and negative Eyes: reports: Reviewed and negative Ears: reports: Reviewed and negative Nose: reports: Reviewed and negative Throat: reports: Reviewed and negative PD PAST MEDICAL HISTORY - Past Medical History Cardiovascular: None Respiratory: None Endocrine/Autoimmune: None GI: None HEENT: None Psych: Other - Past Surgical History Past Surgical History: No - Present Medications Home Medications: Ambulatory Orders Medication Instructions Recorded Confirmed No Known Home Medications 07/09/17 07/13/17 - Allergies Allergies/Adverse Reactions: Allergies Allergy/AdvReac Type Severity Reaction Status Date / Time olanzapine [From Zyprexa] Allergy Anaphylaxis Verified 03/29/21 15:29 risperidone Allergy Anaphylaxis Verified 03/29/21 15:29 - Social History Does the pt smoke?: No Smoking Status: Never smoker Does the pt drink ETOH?: No Does the pt have substance abuse?: No - Immunizations Immunizations are current?: Yes - POLST Patient has POLST: No PD ED PE NORMAL - Vitals Vital signs reviewed: Yes - General General: Alert and oriented X 3, No acute distress, Other (Slightly poor eye contact but generally almost normal affect for schizophrenic.) - Derm Derm: Normal color, Warm and dry - Neuro Neuro: Alert and oriented X 3, Normal speech Results - Vitals Vitals: Vital Signs - 24 hr 03/29/21 15:29 Temperature 36.5 C Heart Rate 90 Respiratory 16 Rate Blood Pressure 160/100 H O2 Saturation 95 Oxygen O2 Source Room air Departure - Departure Disposition: 01 Home, Self Care Clinical Impression: Schizophrenia Qualifiers: Schizophrenia type: unspecified Qualified Code(s): F20.9 - Schizophrenia, unspecified Condition: Good Record reviewed to determine appropriate education?: Yes Instructions: ED Schizophrenia General Comments: Return for new or worsening symptoms or if you develop thoughts of hurting yourself or others. Follow-up with your psychiatrist upon return home.
== END 2021-03-29 16:14 | disposition home or self-care (01) ==
LOC: ED 15:10
DX: F20.9 Schizophrenia, unspecified (principal)
CPT/HCPCS: 96372; 99283; J2060

== ENCOUNTER 2022-02-13 13:11 | Emergency (ER) | payer MEDICARE, MEDICAID ==
[2022-02-13 13:35] VITALS: BP 158/97
== END 2022-02-13 15:15 | disposition left against medical advice (07) ==
LOC: ED 13:11
DX: Z53.21 Procedure and treatment not carried out due to patient leaving prior to being seen by health care provider (principal)

== ENCOUNTER 2023-03-22 12:57 | Emergency (ER) | payer MEDICARE, MEDICAID ==
[2023-03-22 13:09] VITALS: BP 127/87; O2SAT 97
[2023-03-22] MEDS ORDERED: LORazepam 2 MG/ML VIAL IM STA (13:10)
--- NOTE | 2023-03-22 13:25 | ED Physician Documentation ---
PD HPI MHE - Stated complaint Stated Complaint: MHE - Chief complaint Chief Complaint: MHE - History obtained from History obtained from: Patient - Additional information Additional information: The patient comes to the emergency department chief complaint of hallucinations. He states he hears voices in his head and sometimes they are very persistent and just keep talking and it bothers him. He states they are not telling him to harm himself or others. He states that when this is happened before, a dose of Ativan has really helped and seems to break the cycle. The patient has been taking his usual medications as directed. No other complaints at this time. He states he otherwise feels fairly good. PD PAST MEDICAL HISTORY - Past Medical History Past Medical History: Yes Cardiovascular: None Respiratory: None Endocrine/Autoimmune: None GI: None HEENT: None Psych: Schizophrenia, Other - Past Surgical History Past Surgical History: No - Present Medications Home Medications: Ambulatory Orders Medication Instructions Recorded Confirmed Aripiprazole [Abilify Maintena] 400 mg IM ONCE 03/22/23 03/22/23 - Allergies Allergies/Adverse Reactions: Allergies Allergy/AdvReac Type Severity Reaction Status Date / Time olanzapine [From Zyprexa] Allergy Anaphylaxis Verified 03/22/23 13:00 risperidone Allergy Anaphylaxis Verified 03/22/23 13:00 - Social History Does the pt smoke?: No Smoking Status: Never smoker Does the pt drink ETOH?: No Does the pt have substance abuse?: No - Immunizations Immunizations are current?: Yes - POLST Patient has POLST: No PD ED PE NORMAL - Vitals Vital signs reviewed: Yes - General General: Alert and oriented X 3, No acute distress, Well developed/nourished - HEENT HEENT: Atraumatic, PERRL, EOMI, Moist mucous membranes - Neck Neck: Supple, no meningeal sign - Cardiac Cardiac: RRR, No murmur - Respiratory Respiratory: No respiratory distress, Clear bilaterally - Abdomen Abdomen: Soft, Non tender, Non distended - Derm Derm: Warm and dry - Extremities Extremities: No deformity - Neuro Neuro: Alert and oriented X 3 - Psych Psych: Normal mood, Normal affect Results - Vitals Vitals: Oxygen O2 Source Room air PD Medical Decision Making - ED course Complexity details: considered differential, d/w patient ED course: The patient was very calm and cooperative in the emergency department. I was agreeable to giving him a dose of Ativan and this was done here. The patient reported feeling better afterward and I felt he was stable for discharge home. He will continue to take his normal home medications and follow-up as usual. We discussed the usual indications for return. Departure - Departure Disposition: 01 Home, Self Care Clinical Impression: Hallucinations Condition: Stable Instructions: ED Schizophrenia General Comments: You have been treated with a dose of Ativan intramuscularly today. This should help with your symptoms but please do plan to report for your next dose of Abilify on schedule. If you begin all to feel like harming yourself or others, please seek help immediately. Forms: PCP List Discharge Date/Time: 03/22/23 13:30
== END 2023-03-22 13:30 | disposition home or self-care (01) ==
LOC: ED 12:57
DX: R44.0 Auditory hallucinations (principal)
CPT/HCPCS: 96372; 99283; 99284; J2060

== ENCOUNTER 2024-01-27 10:54 | Emergency (ER) | payer MEDICARE, MEDICAID ==
--- NOTE | 2024-01-27 12:01 | ED Physician Documentation ---
PD HPI MHE - Stated complaint Stated Complaint: ANXIETY - Chief complaint Chief Complaint: MHE - Additional information Additional information: 28-year-old male with known schizophrenia presents emergency department for auditory hallucinations. Patient says that he normally comes into the emergency department for intramuscular Ativan and is hoping to have some IM Ativan today for his hallucinations. He denies any suicidal homicidal thoughts denies any need to talk to social work or any mental health specialist. He is denying the voices telling him to do anything harmful to himself or others but does not want to disclose what the voices are saying to him. PD PAST MEDICAL HISTORY - Past Medical History Past Medical History: Yes Cardiovascular: None Respiratory: None Neuro: None Endocrine/Autoimmune: Type 2 diabetes GI: None : None HEENT: None Psych: Schizophrenia, Other Musculoskeletal: None Derm: None - Past Surgical History Past Surgical History: No - Present Medications Home Medications: Ambulatory Orders Medication Instructions Recorded Confirmed Lisinopril [Zestril] 20 mg PO DAILY 01/27/24 Paliperidone Palmitate [Invega 234 mg IM MAINTENANCE.IV 01/27/24 Sustenna] metFORMIN [Glucophage] 500 mg PO BID 01/27/24 - Allergies Allergies/Adverse Reactions: Allergies Allergy/AdvReac Type Severity Reaction Status Date / Time No Known Drug Allergies Allergy Verified 01/27/24 11:10 - Social History Does the pt smoke?: No Smoking Status: Never smoker Does the pt drink ETOH?: No Does the pt have substance abuse?: No - Immunizations Immunizations are current?: Yes - POLST Patient has POLST: No PD ED PE NORMAL - Vitals Vital signs reviewed: Yes - General General: Alert and oriented X 3, No acute distress, Well developed/nourished - Neuro Neuro: Alert and oriented X 3, cds sales advisor 2-12 intact, No motor deficit, No sensory deficit, Normal speech Eye Opening: Spontaneous Motor: Obeys Commands Verbal: Oriented GCS Score: 15 PD ED PE EXPANDED - Psych Psych: Auditory hallucinations, Visual hallucinations. No: Intoxicated / AOB, Depressed, Suicidal, Homicidal, Withdrawn, Poor eye contact, Anxious, Combative, Manic Results - Vitals Vitals: Vital Signs - 24 hr 01/27/24 01/27/24 11:00 12:47 Temperature 36.1 C L Heart Rate 97 86 Respiratory 17 16 Rate Blood Pressure 156/88 H 148/78 H O2 Saturation 97 98 Oxygen O2 Source Room air PD Medical Decision Making - ED course ED course: 28-year-old male with known schizophrenia presents emergency department for request of intramuscular Ativan. He was given a one-time shot of 1 mg IM Ativan to help with his auditory and visual hallucinations. Pat patient kindly declines to speak with social work or other psychiatric support. He says that he feels safe for discharge lives at home with family supportive mother at bedside patient denies any suicidal homicidal ideation. Departure - Departure Disposition: 01 Home, Self Care Clinical Impression: Mental health problem, Anxiety, Auditory hallucination Instructions: ED Schizo Affective Disorder Comments: Thank you for trusting us with your care. We have given you intramuscular Ativan in the emergency department to help with your hallucinations please come back into the emergency department if you are starting to notice any suicidal homicidal ideation or if you are not noting any improvement in your visual auditory hallucinations after the Ativan. Forms: PCP List Discharge Date/Time: 01/27/24 12:48
[2024-01-27] MEDS: LORazepam 2 MG/ML VIAL IM STA (12:20)
[2024-01-27 12:51] VITALS: BP 148/78; O2SAT 98
== END 2024-01-27 12:48 | disposition home or self-care (01) ==
LOC: ED 10:54
DX: R44.0 Auditory hallucinations (principal); F41.9 Anxiety disorder, unspecified
CPT/HCPCS: 96372; 99283; 99284; J2060

== ENCOUNTER 2024-03-31 07:24 | Emergency (ER) | payer MEDICARE, MEDICAID ==
--- NOTE | 2024-03-31 07:51 | ED Physician Documentation ---
PD HPI MHE - Stated complaint Stated Complaint: MHE - Chief complaint Chief Complaint: MHE - History obtained from History obtained from: Patient, Family - Additional information Additional information: 28-year-old gentleman presents by private vehicle with mother. He has a history of schizophrenia and has been on Invega, risperidone, and lorazepam for these. He does not currently have psychiatric follow-up, at least not in short order. He is seeing nurse practitioner Danica May 18. Currently his medications are being prescribed by his primary care provider. He presents with increasing a uditory hallucinations. He says that he hears voices that talk about him, he has no thoughts of SI or HI. His mother specifically queries whether lithium would be appropriate to start today. PD PAST MEDICAL HISTORY - Past Medical History Cardiovascular: None Respiratory: None Neuro: None Endocrine/Autoimmune: Type 2 diabetes GI: None : None HEENT: None Psych: Schizophrenia, Other Musculoskeletal: None Derm: None - Past Surgical History Past Surgical History: No - Present Medications Home Medications: Ambulatory Orders Medication Instructions Recorded Confirmed Lisinopril [Zestril] 20 mg PO DAILY 01/27/24 03/31/24 Paliperidone Palmitate [Invega 234 mg IM MAINTENANCE.IV 01/27/24 03/31/24 Sustenna] metFORMIN [Glucophage] 500 mg PO BID 01/27/24 03/31/24 - Allergies Allergies/Adverse Reactions: Allergies Allergy/AdvReac Type Severity Reaction Status Date / Time No Known Drug Allergies Allergy Verified 03/31/24 07:33 - Social History Does the pt smoke?: No Smoking Status: Never smoker Does the pt drink ETOH?: No Does the pt have substance abuse?: No - Immunizations Immunizations are current?: Yes - POLST Patient has POLST: No PD ED PE NORMAL - Vitals Vital signs reviewed: Yes - General General: Alert and oriented X 3, No acute distress - Neuro Neuro: Alert and oriented X 3, Normal speech - Psych Psych: Normal mood Results - Vitals Vitals: Vital Signs - 24 hr 03/31/24 03/31/24 07:33 08:45 Temperature 36.6 C 36.6 C Heart Rate 82 82 Respiratory 16 17 Rate Blood Pressure 131/96 H 124/94 H O2 Saturation 99 98 Oxygen O2 Source Room air PD Medical Decision Making - ED course ED course: 28-year-old gentleman presents with increasing auditory hallucinations despite being compliant with long-acting Haldol injections, risperidone and Ativan. He would like a shot of Ativan and is agreeable to talking to the telepsychiatric cardiology consultants about medication management. I discussed with mom that I would not be willing to start lithium out of the emergency department given lack of close follow-up and need for monitoring. He was placed in line for both telepsychiatry consult and social work consult. Subsequently they tired of the wait and requested discharge. They were given a list of outpatient follow-up resources. Departure - Departure Disposition: 01 Home, Self Care Clinical Impression: Schizophrenia Qualifiers: Schizophrenia type: unspecified Qualified Code(s): F20.9 - Schizophrenia, unspecified Condition: Stable Record reviewed to determine appropriate education?: Yes Instructions: ED Schizophrenia General Comments: Follow-up with the nurse practitioner for mental health treatment as scheduled. You might call them and see if a more urgent appointment is available. Also see the attached list of crisis triage facilities for respite and crisis helpline's attached to this packet. Forms: PCP List Discharge Date/Time: 03/31/24 08:46
[2024-03-31] MEDS: LORazepam 2 MG/ML VIAL IM STA (08:06)
[2024-03-31 08:50] VITALS: BP 124/94; O2SAT 98
== END 2024-03-31 08:46 | disposition home or self-care (01) ==
LOC: ED 07:24
DX: F20.9 Schizophrenia, unspecified (principal); E11.9 Type 2 diabetes mellitus without complications; Z79.899 Other long term (current) drug therapy; Z79.84 Long term (current) use of oral hypoglycemic drugs
CPT/HCPCS: 96372; 99283; J2060